=== PATIENT | male | born 1985 | race Caucasian/White ===

== ENCOUNTER 2017-04-16 10:31 | Inpatient (IN) | payer OTHER ==
[2017-04-16 13:13] VITALS: BMI 28.5
--- NOTE | 2017-04-16 13:51 | HP ---
CIWA Score - CIWA Score Nausea/Vomitin Muscle Tremors: 3 Anxiety: 3 Agitation: 3 Paroxysmal Sweats: 2 Orientation: 0-Oriented Tacttile Disturbances: 2-Mild Itch/Numbness/Burn Auditory Disturbances: 2-Mild Harshness/Frighten Visual Disturbances: 2-Mild Sensitivity Headache: 2-Mild CIWA-Ar Total Score: 22 Admission ROS BHS - HPI Chief Complaint: i need help to stop drinking alcohol and xanax Allergies/Adverse Reactions: Allergies Allergy/AdvReac Type Severity Reaction Status Date / Time No Known Allergies Allergy Verified 04/16/17 13:40 History of Present Illness: this 31 years old male with alcohol and xanax,seeking detox,last detox 10/23 [facility] mmtp 100 mgs/day,last medicated 04/15/17 nicotine dependence anxiety and depression longest period of sobriety 3 years Exam Limitations: No Limitations - Ebola screening Have you traveled outside of the country in the last 21 days: No Have you had contact with anyone from an Ebola affected area: No Have you been sick,other than usual withdrawal symptoms: No Do you have a fever: No - Review of Systems Constitutional: Chills, Diaphoresis, Loss of Appetite, Malaise, Night Sweats, Changes in sleep, Unintentional Wgt. Loss EENT: reports: Nose Congestion Respiratory: reports: No Symptoms reported Cardiac: reports: Palpitations GI: reports: Diarrhea, Nausea, Vomiting, Abdominal cramping Musculoskeletal: reports: Back Pain, Muscle Pain Integumentary: reports: Dryness Neuro: reports: Headache, Tremors Endocrine: reports: No Symptoms Reported Hematology: reports: No Symptoms Reported Psychiatric: reports: No Sypmtoms Reported, Judgement Intact, Mood/Affect Appropiate, Anxious, Depressed Other Systems: Reviewed and Negative Patient History - Patient Medical History Hx Anemia: No Hx Asthma: No Hx Chronic Obstructive Pulmonary Disease (COPD): No Hx Cancer: No Hx Cardiac Disorders: No Hx Congestive Heart Failure: No Hx Hypertension: No Hx Hypercholesterolemia: No Hx Pacemaker: No HX Cerebrovascular Accident: No Hx Seizures: No Hx Dementia: No Hx Diabetes: No Hx Gastrointestinal Disorders: No Hx Liver Disease: No Hx Genitourinary Disorders: No Hx Sexually Transmitted Disorders: No Hx Renal Disease (ESRD): No Hx Thyroid Disease: No Hx Human Immunodeficiency Virus (HIV): No (last 10/23 negative) Hx Hepatitis C: No Hx Depression: Yes (anxiety) Hx Suicide Attempt: No Hx Bipolar Disorder: No Hx Schizophrenia: No Other Medical History: no suicidal,no homicidal - Patient Surgical History Past Surgical History: No - PPD History Previous Implant?: Yes Documented Results: Negative w/o proof Implanted On Prior [facility] Admission?: No PPD to be Administered?: Yes - Smoking Cessation Smoking history: Current every day smoker Have you smoked in the past 12 months: Yes Aproximately how many cigarettes per day: 5 Hx Chewing Tobacco Use: No Initiated information on smoking cessation: Yes 'Breaking Loose' booklet given: 04/16/17 - Substance & Tx. History Hx Alcohol Use: Yes Hx Substance Use: Yes Substance Use Type: Alcohol, Tranquilizers Hx Substance Use Treatment: Yes ([facility] 10/23) - Substances Abused Alcohol-vodka/four lokos Route: Oral Frequency: Daily Amount used: 1 qt./2 (24 oz.) Age of first use: 13 Date of Last Use: 04/16/17 Xanax Route: Oral Frequency: Daily Amount used: 12 mg. Age of first use: 28 Date of Last Use: 04/14/17 Family Disease History - Family Disease History Family History: Denies Admission Physical Exam [facility] - Vital Signs Vital Signs: Vital Signs - 24 hr 04/16/17 13:09 Temperature 96.5 F L Pulse Rate 97 H Respiratory 18 Rate Blood Pressure 128/87 - Physical General Appearance: Yes: Moderate Distress, Tremorous, Irritable, Sweating, Anxious HEENTM: Yes: Hearing grossly Normal, Normal ENT Inspection, Nasal Congestion, Rhinorrhea Respiratory: Yes: Lungs Clear, Normal Breath Sounds, No Respiratory Distress Neck: Yes: Within Normal Limits Breast: Yes: Within Normal Limits Cardiology: Yes: Within Normal Limits, Regular Rhythm, Regular Rate, S1, S2 Abdominal: Yes: Within Normal Limits, Normal Bowel Sounds, Non Tender, Flat, Soft Genitourinary: Yes: Within Normal Limits Back: Yes: Muscle Spasm Musculoskeletal: Yes: Within Normal Limits, full range of Motion, Back pain, Muscle Pain Extremities: Yes: Within Normal Limits, Normal Range of Motion, Tremors 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 intact, Fully Oriented, Alert, Motor Strength 5/5 Integumentary: Yes: Dry Lymphatic: Yes: Within Normal Limits - Diagnostic (1) Alcohol dependence with uncomplicated withdrawal Current Visit: Yes Status: Acute (2) Cocaine dependence Current Visit: Yes Status: Acute (3) Methadone maintenance therapy patient Current Visit: Yes Status: Acute (4) Weight loss Current Visit: Yes Status: Acute (5) Nicotine dependence Current Visit: Yes Status: Acute (6) Anxiety and depression Current Visit: Yes Status: Acute Cleared for Admission [facility] - Detox or Rehab [facility] Level of Care: Medically Managed Detox Regimen/Protocol: Valium [facility] Breath Alcohol Content Breath Alcohol Content: 0.111 Urine Drug Screen - Results Drug Screen Negative: No Urine Drug Screen Results: GLORIA-Cocaine, BZO-Benzodiazepines, MTD-Methadone, TCA- Tricyclic Antidepress
[2017-04-16] MEDS ORDERED: LOPERAMIDE HCL 2 MG CAPSULE PO PRN (14:00)
[2017-04-16] MEDS ORDERED: MAG HYDROX/AL HYDROX/SIMETH 30 ML UNIT-DOSE CUP PO PRN (14:00)
[2017-04-16] MEDS ORDERED: guaiFENesin/D-METHORPHAN HB 10 ML UNIT-DOSE CUPS PO PRN (14:00)
[2017-04-16] MEDS ORDERED: MAGNESIUM CITRATE 300 ML BOTTLE PO PRN (14:00)
[2017-04-16] MEDS ORDERED: IBUPROFEN 400 MG TABLET (FP) PO PRN (14:00)
[2017-04-16] MEDS ORDERED: diphenhydrAMINE HCL 50 MG CAPSULE PO PRN (14:00)
[2017-04-16] MEDS ORDERED: MAGNESIUM HYDROX 2400MG/30ML ORAL SUSPENSION 30 ML CUP PO PRN (14:00)
[2017-04-16] MEDS ORDERED: MENTHOL/PHENOL 1 EACH UD MM PRN (14:00)
[2017-04-16] MEDS ORDERED: ACETAMINOPHEN 325 MG TABLET (FP) PO PRN (14:00)
[2017-04-16] MEDS ORDERED: P-EPHED 60MG/TRIPROLIDI 2.5MG TABLET PO PRN (14:00)
[2017-04-16] MEDS ORDERED: hydrOXYzine PAMOATE 50 MG CAPSULE (FP) PO PRN (14:00)
[2017-04-16] MEDS ORDERED: METHADONE HCL 10 MG TABLET PO ONE (14:04)
[2017-04-16] MEDS ORDERED: diazePAM 5 MG TABLET PO ONE (14:45)
[2017-04-16] MEDS ORDERED: METHADONE 80 MG, METHADONE 20 MG PO ONE (14:45)
[2017-04-16] MEDS ORDERED: METHADONE HCL 10 MG TABLET ONE (15:37)
[2017-04-16] MEDS ORDERED: METHADONE HCL 40 MG DISPERSABLE TABLET ONE (15:38)
[2017-04-16] MEDS: NICOTINE 14 MG/24 HOURS TOPICAL PATCH TD SCH (15:50)
--- NOTE | 2017-04-16 16:27 | CONSULT ---
[facility] Psychiatric Consult - Data Date of interview: 04/16/17 Admission source: [facility] Identifying data: First admission to [facility] for this 31 y/o male seeking detox treatment for alcohol,opioid,cocaine and benzodiazepine dependence.Patient is single without children,homeless,unemployed and supported on food stamps. Substance Abuse History: - Smoking Cessation. Smoking history: Current every day smoker. Have you smoked in the past 12 months: Yes. Aproximately how many cigarettes per day: 5. Hx Chewing Tobacco Use: No. Initiated information on smoking cessation: Yes. 'Breaking Loose' booklet given: 04/16/17. - Substance & Tx. History. Hx Alcohol Use: Yes. Hx Substance Use: Yes. Substance Use Type : Alcohol, Tranquilizers. Hx Substance Use Treatment: Yes ([facility] 10/23) . - Substances Abused. Alcohol-vodka/four lokos. Route: Oral. Frequency: Daily. Amount used: 1 qt./2 (24 oz.). Age of first use: 13. Date of Last Use : 04/16/17. Xanax. Route: Oral. Frequency: Daily. Amount used: 12 mg. Age of first use: 28. Date of Last Use: 04/14/17. Confirmed by patient. Medical History: Patient endorses good general health. Psychiatric History: No reported history of psychiatric hospitalizations.Diagnosed with Anxiety Disorder and Insomnia.Used to be on buspar,xanax,vistaril,remeron and trazodone.Patient is currrently on methadone maintenance (100 mg/day) at the [facility] in the [place].Discharged from [facility] over a month ago.Patient denies history of suicide attempts. Physical/Sexual Abuse/Trauma History: Patient denies. Additional Comment: Urine Drug Screen Results: GLORIA-Cocaine, BZO-Benzodiazepines , MTD-Methadone, TCA-Tricyclic Antidepressant.Noted. Mental Status Exam - Mental Status Exam Alert and Oriented to: Time, Place, Person Cognitive Function: Good Patient Appearance: Well Groomed Mood: Anxious, Apprehensive Affect: Mood Congruent Patient Behavior: Fatigued, Appropriate, Cooperative Speech Pattern: Clear Voice Loudness: Normal Thought Process: Goal Oriented Thought Disorder: Not Present Hallucinations: Denies Suicidal Ideation: Denies Homicidal Ideation: Denies Insight/Judgement: Poor Sleep: Poorly, Difficulty falling asleep (wants trazodone) Appetite: Good Muscle strength/Tone: Normal Gait/Station: Normal Psychiatric Findings - Problem List (Bern 1, 2,3) (1) Alcohol dependence with uncomplicated withdrawal Current Visit: Yes Status: Acute (2) Cocaine dependence Current Visit: Yes Status: Acute (3) Nicotine dependence Current Visit: Yes Status: Acute (4) Opioid dependence on agonist therapy Current Visit: Yes Status: Acute (5) Substance induced mood disorder Current Visit: Yes Status: Acute (6) Insomnia Current Visit: Yes Status: Acute - Initial Treatment Plan Initial Treatment Plan: Psychoeducation.Detoxification.Trazodone 100 mg po hs.Patient is made aware of potential for priapism.He reports that he has always " done well " on this medication without adverse effects.Observation.
[2017-04-16 17:33] LABS: URINE APPEARANCE CLEAR; URINE BILIRUBIN NEGATIVE (NEGATIVE); URINE BLOOD NEGATIVE (NEGATIVE); URINE COLOR COLORLESS; URINE GLUCOSE (UA) NEGATIVE (NEGATIVE); URINE KETONE NEGATIVE (NEGATIVE); URINE LEUK ESTERASE NEGATIVE (NEGATIVE); URINE NITRITE NEGATIVE (NEGATIVE); URINE PROTEIN NEGATIVE (NEGATIVE); URINE UROBILINOGEN NEGATIVE E.U./dl (0.2-1.0)
[2017-04-16] MEDS: diazePAM 5 MG TABLET PO PRN (18:47)
[2017-04-16] MEDS: cloNIDine HCL 0.1 MG TABLET PO SCH (22:11)
[2017-04-16] MEDS: traZODone HCL 100 MG TABLET (FP) PO SCH (22:11)
[2017-04-16] MEDS: diazePAM 5 MG TABLET PO SCH (22:11)
[2017-04-16] MEDS: THIAMINE HCL 100 MG TABLET (FP) PO SCH (22:11)
[2017-04-17] MEDS ORDERED: METHADONE HCL 10 MG TABLET ONE (04:24)
[2017-04-17] MEDS ORDERED: METHADONE HCL 40 MG DISPERSABLE TABLET ONE (04:25)
[2017-04-17] MEDS: METHADONE 80 MG, METHADONE 20 MG PO SCH (05:49)
[2017-04-17] MEDS: diazePAM 5 MG TABLET PO SCH ×3 (05:49→22:07)
[2017-04-17] MEDS ORDERED: METHADONE HCL 10 MG TABLET PO SCH (06:00)
[2017-04-17] MEDS: diazePAM 5 MG TABLET PO PRN ×2 (08:56→17:13)
[2017-04-17 09:58] LABS: MCH 29.5 pg (25.7-33.7); MCHC 33.8 g/dl (32.0-35.9); MEAN CELL VOLUME 87.2 fl (80-96); MEAN PLT VOLUME 9.7 fl (7.5-11.1); PLATELET COUNT 182 K/MM3 (134-434); WHITE BLOOD COUNT 7.9 K/mm3 (4.0-10.0)
[2017-04-17] MEDS: cloNIDine HCL 0.1 MG TABLET PO SCH ×2 (10:04→22:07)
[2017-04-17] MEDS: PRENATAL VITAMINS W/ FOLIC ACID TABLET (FP) PO SCH (10:04)
[2017-04-17] MEDS: NICOTINE 14 MG/24 HOURS TOPICAL PATCH TD SCH (10:04)
[2017-04-17 10:37] LABS: ALBUMIN 4.2 g/dl (3.4-5.0); ALK PHOS 118 U/L (45-117); ANION GAP 11 (8-16); BILIRUBIN,TOTAL 0.3 mg/dL (0.2-1.0); CALCIUM 8.9 mg/dL (8.5-10.1); CO2 31 mmol/L (21-32); COCKROFT - GAULT 138.86; CREATININE 0.9 mg/dL (0.7-1.3); GLUCOSE,RANDOM 92 mg/dL (74-106); SGOT/AST 27 U/L (15-37); SGPT/ALT 27 U/L (12-78); TOT PROT 7.7 g/dl (6.4-8.2)
[2017-04-17 14:14] LABS: HIV 1 & 2 AB NEGATIVE; HIV 1 AGp24 NEGATIVE
--- NOTE | 2017-04-17 15:47 | EKG ---
Test Reason : Blood Pressure : / mmHG Vent. Rate : 086 BPM Atrial Rate : 086 BPM P-R Int : 156 ms QRS Dur : 094 ms QT Int : 394 ms P-R-T Axes : 070 033 029 degrees QTc Int : 471 ms NORMAL SINUS RHYTHM NORMAL ECG NO PREVIOUS ECGS AVAILABLE Confirmed by MAGDALENE VILLEDA, RED ([id number]) on 04/17/2017 3:47:29 PM Referred By: Confirmed By:RED DEL CASTILLO MD
--- NOTE | 2017-04-17 18:51 | PN ---
S CIWA - CIWA Score Nausea/Vomitin Muscle Tremors: 3 Anxiety: 4-Mod. Anxious/Guarded Agitation: 2 Paroxysmal Sweats: 3 Orientation: 0-Oriented Tacttile Disturbances: 2-Mild Itch/Numbness/Burn Auditory Disturbances: 0-None Visual Disturbances: 2-Mild Sensitivity Headache: 0-None Present CIWA-Ar Total Score: 18 BHS Progress Note (SOAP) Subjective: Stomach Cramping, Anxious, Interrupted Sleep, Body Aches, Sweating. Objective: PT. A & O X 3. NO ACUTE DISTRESS. 04/17/17 18:49 Vital Signs Temperature 97.3 F L 04/17/17 17:35 Pulse Rate 76 04/17/17 17:35 Respiratory Rate 18 04/17/17 17:35 Blood Pressure 114/70 04/17/17 17:35 O2 Sat by Pulse Oximetry (%) Laboratory Tests 04/16/17 04/17/17 04/17/17 15:00 06:00 06:00 WBC 7.9 RBC 4.59 Hgb 13.5 Hct 40.0 MCV 87.2 MCHC 33.8 RDW 13.0 Plt Count 182 MPV 9.7 Sodium 140 Potassium 3.8 Chloride 98 Carbon Dioxide 31 Anion Gap 11 BUN 8 Creatinine 0.9 Creat Clearance w eGFR > 60 Random Glucose 92 Calcium 8.9 Total Bilirubin 0.3 AST 27 ALT 27 Alkaline Phosphatase 118 H Total Protein 7.7 Albumin 4.2 Urine Color Colorless Urine Appearance Clear Urine pH 6.0 Ur Specific [place] 1.010 Urine Protein Negative Urine Glucose (UA) Negative Urine Ketones Negative Urine Blood Negative Urine Nitrite Negative Urine Bilirubin Negative Urine Urobilinogen Negative Ur Leukocyte Esterase Negative RPR Titer HIV 1&2 Antibody Screen HIV P24 Antigen 04/17/17 04/17/17 06:00 08:00 WBC RBC Hgb Hct MCV MCHC RDW Plt Count MPV Sodium Potassium Chloride Carbon Dioxide Anion Gap BUN Creatinine Creat Clearance w eGFR Random Glucose Calcium Total Bilirubin AST ALT Alkaline Phosphatase Total Protein Albumin Urine Color Urine Appearance Urine pH Ur Specific [place] Urine Protein Urine Glucose (UA) Urine Ketones Urine Blood Urine Nitrite Urine Bilirubin Urine Urobilinogen Ur Leukocyte Esterase RPR Titer Nonreactive HIV 1&2 Antibody Screen Negative HIV P24 Antigen Negative LABS NOTED. Assessment: 04/17/17 18:50 WITHDRAWAL SYMPTOMS. Plan: CONTINUE DETOX.
[2017-04-17] MEDS: THIAMINE HCL 100 MG TABLET (FP) PO SCH (22:06)
[2017-04-17] MEDS: CYCLOBENZAPRINE HCL 10 MG TABLET (FP) PO PRN (22:07)
[2017-04-17] MEDS: traZODone HCL 100 MG TABLET (FP) PO SCH (22:07)
[2017-04-18] MEDS ORDERED: METHADONE HCL 10 MG TABLET ONE (02:59)
[2017-04-18] MEDS ORDERED: METHADONE HCL 40 MG DISPERSABLE TABLET ONE (03:00)
[2017-04-18] MEDS: CYCLOBENZAPRINE HCL 10 MG TABLET (FP) PO PRN ×2 (05:35→22:04)
[2017-04-18] MEDS: diazePAM 5 MG TABLET PO PRN ×3 (05:36→17:03)
[2017-04-18] MEDS: METHADONE 80 MG, METHADONE 20 MG PO SCH (05:36)
[2017-04-18] MEDS: cloNIDine HCL 0.1 MG TABLET PO SCH ×2 (10:04→22:04)
[2017-04-18] MEDS: diazePAM 5 MG TABLET PO SCH ×2 (10:04→22:03)
[2017-04-18] MEDS: NICOTINE 14 MG/24 HOURS TOPICAL PATCH TD SCH (10:04)
[2017-04-18] MEDS: PRENATAL VITAMINS W/ FOLIC ACID TABLET (FP) PO SCH (10:04)
--- NOTE | 2017-04-18 14:57 | PN ---
[facility] CIWA - CIWA Score Nausea/Vomitin-Int. Nausea w/Dry Heave Muscle Tremors: 4-Moderate,w/Arms Extend Anxiety: 4-Mod. Anxious/Guarded Agitation: 4-Moderately Restless Paroxysmal Sweats: 3 Orientation: 0-Oriented Tacttile Disturbances: 1-Very Mild Itch/Numbness Auditory Disturbances: 0-None Visual Disturbances: 0-None Headache: 0-None Present CIWA-Ar Total Score: 20 BHS Progress Note (SOAP) Subjective: Anxious, nausea, diarrhea, chills, tremor, interrupted sleep Objective: 04/18/17 14:56 Last Vital Signs Temp Pulse Resp BP Pulse Ox 97.5 F L 74 20 111/70 04/18/17 13:11 04/18/17 13:11 04/18/17 13:11 04/18/17 13:11 Laboratory Tests 04/16/17 04/17/17 04/17/17 15:00 06:00 06:00 WBC 7.9 RBC 4.59 Hgb 13.5 Hct 40.0 MCV 87.2 MCHC 33.8 RDW 13.0 Plt Count 182 MPV 9.7 Sodium 140 Potassium 3.8 Chloride 98 Carbon Dioxide 31 Anion Gap 11 BUN 8 Creatinine 0.9 Creat Clearance w eGFR > 60 Random Glucose 92 Calcium 8.9 Total Bilirubin 0.3 AST 27 ALT 27 Alkaline Phosphatase 118 H Total Protein 7.7 Albumin 4.2 Urine Color Colorless Urine Appearance Clear Urine pH 6.0 Ur Specific [place] 1.010 Urine Protein Negative Urine Glucose (UA) Negative Urine Ketones Negative Urine Blood Negative Urine Nitrite Negative Urine Bilirubin Negative Urine Urobilinogen Negative Ur Leukocyte Esterase Negative RPR Titer HIV 1&2 Antibody Screen HIV P24 Antigen 04/17/17 04/17/17 06:00 08:00 WBC RBC Hgb Hct MCV MCHC RDW Plt Count MPV Sodium Potassium Chloride Carbon Dioxide Anion Gap BUN Creatinine Creat Clearance w eGFR Random Glucose Calcium Total Bilirubin AST ALT Alkaline Phosphatase Total Protein Albumin Urine Color Urine Appearance Urine pH Ur Specific [place] Urine Protein Urine Glucose (UA) Urine Ketones Urine Blood Urine Nitrite Urine Bilirubin Urine Urobilinogen Ur Leukocyte Esterase RPR Titer Nonreactive HIV 1&2 Antibody Screen Negative HIV P24 Antigen Negative Labs noted Assessment: 04/18/17 14:56 Withdrawal symptoms Plan: Continue detox
[2017-04-18] MEDS: traZODone HCL 100 MG TABLET (FP) PO SCH (22:04)
[2017-04-18] MEDS: THIAMINE HCL 100 MG TABLET (FP) PO SCH (22:04)
[2017-04-19] MEDS ORDERED: METHADONE HCL 10 MG TABLET ONE (02:30)
[2017-04-19] MEDS ORDERED: METHADONE HCL 40 MG DISPERSABLE TABLET ONE (02:31)
[2017-04-19] MEDS: METHADONE 80 MG, METHADONE 20 MG PO SCH (05:30)
[2017-04-19] MEDS: diazePAM 5 MG TABLET PO PRN ×2 (05:34→13:55)
[2017-04-19] MEDS ORDERED: ONDANSETRON *ODT* 4 MG TABLET SL PRN (09:42)
[2017-04-19] MEDS: NICOTINE 14 MG/24 HOURS TOPICAL PATCH TD SCH (10:05)
[2017-04-19] MEDS: diazePAM 5 MG TABLET PO SCH ×2 (10:05→22:12)
[2017-04-19] MEDS: PRENATAL VITAMINS W/ FOLIC ACID TABLET (FP) PO SCH (10:05)
[2017-04-19] MEDS: cloNIDine HCL 0.1 MG TABLET PO SCH ×2 (10:05→22:12)
[2017-04-19] MEDS: CYCLOBENZAPRINE HCL 10 MG TABLET (FP) PO PRN (10:05)
--- NOTE | 2017-04-19 13:30 | PN ---
BHS Progress Note (SOAP) Subjective: Sweating,interrupted sleep,restless. Objective: 04/19/17 13:29 Vital Signs - 8 hr 04/19/17 04/19/17 06:18 09:31 Temperature 97.1 F L 97.0 F L Pulse Rate 73 80 Respiratory 16 18 Rate Blood Pressure 108/70 121/77 Laboratory Last Values WBC 7.9 K/mm3 (4.0-10.0) 04/17/17 06:00 RBC 4.59 M/mm3 (4.00-5.60) 04/17/17 06:00 Hgb 13.5 GM/dL (11.7-16.9) 04/17/17 06:00 Hct 40.0 % (35.4-49) 04/17/17 06:00 MCV 87.2 fl (80-96) 04/17/17 06:00 MCHC 33.8 g/dl (32.0-35.9) 04/17/17 06:00 RDW 13.0 % (11.9-15.9) 04/17/17 06:00 Plt Count 182 K/MM3 (134-434) 04/17/17 06:00 MPV 9.7 fl (7.5-11.1) 04/17/17 06:00 Sodium 140 mmol/L (136-145) 04/17/17 06:00 Potassium 3.8 mmol/L (3.5-5.1) 04/17/17 06:00 Chloride 98 mmol/L (98-107) 04/17/17 06:00 Carbon Dioxide 31 mmol/L (21-32) 04/17/17 06:00 Anion Gap 11 (8-16) 04/17/17 06:00 BUN 8 mg/dL (7-18) 04/17/17 06:00 Creatinine 0.9 mg/dL (0.7-1.3) 04/17/17 06:00 Creat Clearance w eGFR > 60 (>60) 04/17/17 06:00 Random Glucose 92 mg/dL (74-106) 04/17/17 06:00 Calcium 8.9 mg/dL (8.5-10.1) 04/17/17 06:00 Total Bilirubin 0.3 mg/dL (0.2-1.0) 04/17/17 06:00 AST 27 U/L (15-37) 04/17/17 06:00 ALT 27 U/L (12-78) 04/17/17 06:00 Alkaline Phosphatase 118 U/L (45-117) H 04/17/17 06:00 Total Protein 7.7 g/dl (6.4-8.2) 04/17/17 06:00 Albumin 4.2 g/dl (3.4-5.0) 04/17/17 06:00 Urine Color Colorless 04/16/17 15:00 Urine Appearance Clear 04/16/17 15:00 Urine pH 6.0 (5.0-8.0) 04/16/17 15:00 Ur Specific [place] 1.010 (1.005-1.025) 04/16/17 15:00 Urine Protein Negative (NEGATIVE) 04/16/17 15:00 Urine Glucose (UA) Negative (NEGATIVE) 04/16/17 15:00 Urine Ketones Negative (NEGATIVE) 04/16/17 15:00 Urine Blood Negative (NEGATIVE) 04/16/17 15:00 Urine Nitrite Negative (NEGATIVE) 04/16/17 15:00 Urine Bilirubin Negative (NEGATIVE) 04/16/17 15:00 Urine Urobilinogen Negative E.U./dl (0.2-1.0) 04/16/17 15:00 Ur Leukocyte Esterase Negative (NEGATIVE) 04/16/17 15:00 RPR Titer Nonreactive (NONREACTIVE) 04/17/17 06:00 HIV 1&2 Antibody Screen Negative 04/17/17 08:00 HIV P24 Antigen Negative 04/17/17 08:00 labs noted Assessment: 04/19/17 13:30 Withdrawal sx. Plan: Continue detox
[2017-04-19] MEDS: THIAMINE HCL 100 MG TABLET (FP) PO SCH (22:11)
[2017-04-19] MEDS: traZODone HCL 100 MG TABLET (FP) PO SCH (22:12)
[2017-04-20] MEDS ORDERED: METHADONE HCL 10 MG TABLET ONE (03:38)
[2017-04-20] MEDS ORDERED: METHADONE HCL 40 MG DISPERSABLE TABLET ONE (03:38)
[2017-04-20] MEDS: CYCLOBENZAPRINE HCL 10 MG TABLET (FP) PO PRN ×2 (05:27→22:07)
[2017-04-20] MEDS: METHADONE 80 MG, METHADONE 20 MG PO SCH (05:27)
[2017-04-20] MEDS ORDERED: diazePAM 5 MG TABLET PO SCH (10:00)
[2017-04-20] MEDS: NICOTINE 14 MG/24 HOURS TOPICAL PATCH TD SCH (10:11)
[2017-04-20] MEDS: cloNIDine HCL 0.1 MG TABLET PO SCH ×2 (10:11→22:06)
[2017-04-20] MEDS: PRENATAL VITAMINS W/ FOLIC ACID TABLET (FP) PO SCH (10:11)
--- NOTE | 2017-04-20 10:12 | PN ---
S Progress Note (SOAP) Subjective: ALERT O X 3. DETOX PROCEEDED WELL. AWAITS AFTERCARE REFERRAL. Objective: 04/20/17 10:11 Vital Signs Temperature 96.5 F L 04/20/17 09:25 Pulse Rate 79 04/20/17 09:25 Respiratory Rate 18 04/20/17 09:25 Blood Pressure 115/72 04/20/17 09:25 O2 Sat by Pulse Oximetry (%) Assessment: 04/20/17 10:11 DECREASED WITHDRAWAL SX Plan: D/C PT WHEN REHAB BED AVAILABLE.
[2017-04-20] MEDS: THIAMINE HCL 100 MG TABLET (FP) PO SCH (22:06)
[2017-04-20] MEDS: traZODone HCL 100 MG TABLET (FP) PO SCH (22:06)
[2017-04-21] MEDS ORDERED: METHADONE HCL 40 MG DISPERSABLE TABLET ONE (02:33)
[2017-04-21] MEDS ORDERED: METHADONE HCL 10 MG TABLET ONE (02:33)
[2017-04-21] MEDS: METHADONE 80 MG, METHADONE 20 MG PO SCH (05:30)
[2017-04-21] MEDS: CYCLOBENZAPRINE HCL 10 MG TABLET (FP) PO PRN (05:30)
[2017-04-21 06:35] VITALS: TEMP 97.3
--- NOTE | 2017-04-21 08:44 | DS ---
[facility] Detox Discharge Summary Admission Date: 04/16/17 Discharge Date: 04/21/17 - History Present History: Alcohol Dependence, Cannabis Dependence, Cocaine Dependence, Sedative Dependence, MMTP Additional Comments: DETOX COMPLETED.ALERT O X 3.NAD. Pertinent Past History: INSOMNIA MOOD DISORDER - Physical Exam Results Vital Signs: Vital Signs Temperature 97.3 F L 04/21/17 06:34 Pulse Rate 79 04/21/17 06:34 Respiratory Rate 18 04/21/17 06:34 Blood Pressure 103/65 04/21/17 06:34 O2 Sat by Pulse Oximetry (%) Pertinent Admission Physical Exam Findings: WITHDRAWAL SX - Treatment Hospital Course: Detox Protocol Followed, Detoxed Safely, Responded well, Discharged Condition Good, Rehab Referral Accepted Patient has Accepted a Rehab Referral to: [facility] - Medication Discharge Medications: Ambulatory Orders Buspirone HCl [Buspar -] 30 mg PO BID 04/16/17 Clonidine HCl [Catapres -] 0.1 mg PO BID 04/16/17 Mirtazapine [Remeron [DO NOT STOCK]] 45 mg PO HS 04/16/17 Trazodone HCl [Desyrel -] 150 mg PO HS 04/16/17 - Diagnosis (1) Alcohol dependence with uncomplicated withdrawal Status: Acute (2) Methadone maintenance therapy patient Status: Chronic (3) Nicotine dependence Status: Acute Qualifiers: Nicotine product type: cigarettes Substance use status: in withdrawal Qualified Code(s): F17.213 - Nicotine dependence, cigarettes, with withdrawal (4) Sedative, hypnotic or anxiolytic use, unspecified with intoxication, uncomplicated Status: Acute (5) Cocaine dependence, uncomplicated Status: Acute (6) Weight loss Status: Acute (7) Insomnia Status: Acute (8) Substance induced mood disorder Status: Acute - AMA Did Patient Leave Against Medical Advice: No
[2017-04-21 09:41] VITALS: BP 106/69; PULSE 62
== END 2017-04-21 09:41 | disposition home or self-care (01) | DRG 773 ==
LOC: YASAS 10:31 → Y3N 14:12
PROVIDERS: ADMIT Internal Medicine; ATTEND Internal Medicine
PROC: HZ2ZZZZ Detoxification Services for Substance Abuse Treatment (ICD-10-PCS; principal; 2017-04-16)
DX: F10.230 Alcohol dependence with withdrawal, uncomplicated (principal); F11.20 Opioid dependence, uncomplicated; F13.230 Sedative, hypnotic or anxiolytic dependence with withdrawal, uncomplicated; F14.20 Cocaine dependence, uncomplicated; F17.213 Nicotine dependence, cigarettes, with withdrawal; F19.24 Other psychoactive substance dependence with psychoactive substance-induced mood disorder; F41.9 Anxiety disorder, unspecified; G47.00 Insomnia, unspecified; Z87.898 Personal history of other specified conditions
CPT/HCPCS: 36415; 80053; 81003; 85027; 86593; 87389; 93005; 93010

== ENCOUNTER 2022-08-12 08:28 | Inpatient (IN) | payer OTHER ==
[2022-08-12 10:18] VITALS: BMI 25.8
[2022-08-12] MEDS ORDERED: ONDANSETRON *ODT* 4 MG TABLET SL PRN (11:45)
[2022-08-12] MEDS ORDERED: BENZOCAINE/MENTHOL (CHLORASEPTIC ) LOZENGE MM PRN (11:45)
[2022-08-12] MEDS ORDERED: MAGNESIUM HYDROX 2400MG/30ML ORAL SUSPENSION 30 ML CUP PO PRN (11:45)
[2022-08-12] MEDS ORDERED: MAGNESIUM CITRATE 300 ML BOTTLE PO PRN (11:45)
[2022-08-12] MEDS ORDERED: IBUPROFEN 400 MG TABLET (FP) PO PRN (11:45)
[2022-08-12] MEDS ORDERED: LOPERAMIDE HCL 2 MG CAPSULE PO PRN (11:45)
[2022-08-12] MEDS ORDERED: BISMUTH SUBSALICYLATE 262 MG/15 ML BTL PO PRN (11:45)
[2022-08-12] MEDS ORDERED: NALOXONE HCL (KLOXXADO) 8 MG SPRAY NS PRN (11:45)
[2022-08-12] MEDS ORDERED: DICYCLOMINE HCL 10 MG CAPSULE PO PRN (11:45)
[2022-08-12] MEDS ORDERED: ACETAMINOPHEN 325 MG TABLET (FP) PO PRN ×2 (11:45)
[2022-08-12] MEDS ORDERED: MAG HYDROX/AL HYDROX/SIMETH 30 ML UNIT-DOSE CUP PO PRN (11:45)
[2022-08-12] MEDS ORDERED: ONDANSETRON *ODT* 4 MG TABLET ONE (12:32)
[2022-08-12] MEDS ORDERED: diazePAM 5 MG TABLET ONE (12:32)
[2022-08-12] MEDS ORDERED: LOPERAMIDE HCL 2 MG CAPSULE ONE (12:33)
[2022-08-12] MEDS: diazePAM 5 MG TABLET PO SCH ×3 (12:40→22:12)
[2022-08-12] MEDS: PRENATAL VITAMINS W/ FOLIC ACID TABLET (FP) PO SCH (13:54)
[2022-08-12] MEDS: NICOTINE 14 MG/24 HOURS TOPICAL PATCH TD SCH (13:54)
[2022-08-12] MEDS: hydrOXYzine PAMOATE 25 MG CAPSULE (FP) PO SCH ×3 (13:54→22:11)
[2022-08-12] MEDS: METHOCARBAMOL 500 MG TABLET PO PRN (13:54)
[2022-08-12] MEDS: cloNIDine HCL 0.1 MG TABLET PO PRN ×2 (14:17→22:13)
[2022-08-12] MEDS: IBUPROFEN 600 MG TABLET (FP) PO PRN (17:07)
[2022-08-12] MEDS ORDERED: MELATONIN 5 MG TABLETS PO SCH (22:00)
[2022-08-12] MEDS: THIAMINE HCL 100 MG TABLET (FP) PO SCH (22:11)
[2022-08-13] MEDS: hydrOXYzine PAMOATE 25 MG CAPSULE (FP) PO SCH ×5 (05:35→22:09)
[2022-08-13] MEDS: diazePAM 5 MG TABLET PO SCH ×4 (05:35→22:09)
[2022-08-13 09:55] LABS: HEMATOCRIT 42.9 % (35.4-49); HEMOGLOBIN 14.7 GM/dL (11.7-16.9); MCH 33.5 pg (25.7-33.7); MCHC 34.3 g/dl (32.0-35.9); MEAN CELL VOLUME 97.8 fl (80-96); MEAN PLT VOLUME 9.9 fl (7.5-11.1); PLATELET COUNT 155 10^3/uL (134-434); RBC 4.39 M/mm3 (4.00-5.60); RDW 13.3 % (11.9-15.9); WHITE BLOOD COUNT 7.1 K/mm3 (4.0-10.0)
[2022-08-13 10:15] LABS: CALCIUM 9.5 mg/dL (8.5-10.1)
[2022-08-13 10:16] LABS: ALBUMIN 3.4 g/dl (3.4-5.0); BLOOD UREA NITROGEN 6.3 mg/dL (7-18)
[2022-08-13 10:22] LABS: TOT PROT 6.9 g/dl (6.4-8.2)
[2022-08-13 10:23] LABS: BILIRUBIN,TOTAL 2.4 mg/dL (0.2-1)
[2022-08-13] MEDS: NICOTINE 14 MG/24 HOURS TOPICAL PATCH TD SCH (10:24)
[2022-08-13] MEDS: METHOCARBAMOL 500 MG TABLET PO PRN (10:24)
[2022-08-13] MEDS: PRENATAL VITAMINS W/ FOLIC ACID TABLET (FP) PO SCH (10:24)
[2022-08-13] MEDS: diazePAM 5 MG TABLET PO PRN ×2 (12:50→19:15)
[2022-08-13] MEDS: GABAPENTIN 300 MG CAPSULE PO SCH ×2 (13:23→22:07)
[2022-08-13] MEDS: cloNIDine HCL 0.1 MG TABLET PO PRN (15:40)
[2022-08-13] MEDS: NICOTINE 10 MG CARTRIDGE (INHALER) IH PRN (17:06)
[2022-08-13] MEDS: QUEtiapine FUMARATE 100 MG TABLET (FP) PO SCH (22:07)
[2022-08-13] MEDS: THIAMINE HCL 100 MG TABLET (FP) PO SCH (22:07)
[2022-08-14] MEDS: hydrOXYzine PAMOATE 25 MG CAPSULE (FP) PO SCH ×2 (05:17→10:33)
[2022-08-14] MEDS: GABAPENTIN 300 MG CAPSULE PO SCH ×3 (05:17→22:15)
[2022-08-14] MEDS ORDERED: diazePAM 5 MG TABLET PO SCH (06:00)
[2022-08-14] MEDS: diazePAM 5 MG TABLET PO PRN (08:33)
[2022-08-14] MEDS: PRENATAL VITAMINS W/ FOLIC ACID TABLET (FP) PO SCH (10:33)
[2022-08-14] MEDS: NICOTINE 14 MG/24 HOURS TOPICAL PATCH TD SCH (10:34)
[2022-08-14] MEDS: METHOCARBAMOL 500 MG TABLET PO PRN (10:43)
[2022-08-14] MEDS ORDERED: chlordiazePOXIDE HCL 25 MG CAPSULE PO PRN (10:59)
[2022-08-14] MEDS: chlordiazePOXIDE HCL 25 MG CAPSULE PO SCH ×3 (11:40→22:15)
[2022-08-14] MEDS: NICOTINE 10 MG CARTRIDGE (INHALER) IH PRN (17:09)
[2022-08-14] MEDS: hydrOXYzine PAMOATE 25 MG CAPSULE (FP) PO PRN (17:09)
[2022-08-14] MEDS: THIAMINE HCL 100 MG TABLET (FP) PO SCH (22:15)
[2022-08-14] MEDS: QUEtiapine FUMARATE 100 MG TABLET (FP) PO SCH (22:15)
[2022-08-14 23:00] VITALS: RESP 18
[2022-08-15] MEDS ORDERED: diazePAM 5 MG TABLET PO SCH (06:00)
[2022-08-15] MEDS: GABAPENTIN 300 MG CAPSULE PO SCH ×3 (06:01→22:09)
[2022-08-15] MEDS: chlordiazePOXIDE HCL 25 MG CAPSULE PO SCH ×2 (06:01→10:33)
[2022-08-15] MEDS: METHOCARBAMOL 500 MG TABLET PO PRN (10:32)
[2022-08-15] MEDS: NICOTINE 10 MG CARTRIDGE (INHALER) IH PRN ×2 (10:32→17:17)
[2022-08-15] MEDS: PRENATAL VITAMINS W/ FOLIC ACID TABLET (FP) PO SCH (10:33)
[2022-08-15] MEDS: IBUPROFEN 600 MG TABLET (FP) PO PRN (10:33)
[2022-08-15] MEDS: NICOTINE 14 MG/24 HOURS TOPICAL PATCH TD SCH (10:33)
[2022-08-15] MEDS: hydrOXYzine PAMOATE 25 MG CAPSULE (FP) PO PRN (10:33)
[2022-08-15] MEDS: LORazepam 1 MG TABLET PO SCH ×2 (13:30→17:40)
[2022-08-15] MEDS: LORazepam 1 MG TABLET PO PRN ×2 (15:27→22:11)
[2022-08-15] MEDS: THIAMINE HCL 100 MG TABLET (FP) PO SCH (22:09)
[2022-08-15] MEDS: QUEtiapine FUMARATE 100 MG TABLET (FP) PO SCH (22:09)
[2022-08-16] MEDS ORDERED: LORazepam 0.5 MG TABLET PO SCH (05:00)
[2022-08-16] MEDS ORDERED: chlordiazePOXIDE HCL 25 MG CAPSULE PO SCH (05:00)
[2022-08-16] MEDS: hydrOXYzine PAMOATE 25 MG CAPSULE (FP) PO PRN (05:29)
[2022-08-16] MEDS: GABAPENTIN 300 MG CAPSULE PO SCH (05:29)
[2022-08-16] MEDS ORDERED: diazePAM 5 MG TABLET PO ONE (06:00)
[2022-08-16] MEDS: LORazepam 1 MG TABLET PO PRN (08:39)
[2022-08-16 09:51] VITALS: BP 143/92; PULSE 82; TEMP 97.3
[2022-08-17] MEDS ORDERED: chlordiazePOXIDE HCL 10 MG CAPSULE PO PRN
[2022-08-17] MEDS ORDERED: chlordiazePOXIDE HCL 10 MG CAPSULE PO SCH (05:00)
[2022-08-17] MEDS ORDERED: LORazepam 0.5 MG TABLET PO ONE (05:00)
[2022-08-18] MEDS ORDERED: LORazepam 0.5 MG TABLET PO PRN
[2022-08-18] MEDS ORDERED: chlordiazePOXIDE HCL 10 MG CAPSULE PO SCH (05:00)
[2022-08-19] MEDS ORDERED: chlordiazePOXIDE HCL 10 MG CAPSULE PO ONE (05:00)
== END 2022-08-16 09:13 | disposition home or self-care (01) | DRG 774 ==
LOC: YASAS 08:28 → Y6N 13:18 → UNDOADMIN 13:18 → Y6N 14:29
PROVIDERS: ADMIT Allergy & Immunology; ATTEND Surgery
PROC: HZ2ZZZZ Detoxification Services for Substance Abuse Treatment (ICD-10-PCS; principal; 2022-08-12)
DX: F10.230 Alcohol dependence with withdrawal, uncomplicated (principal); F14.20 Cocaine dependence, uncomplicated; F13.20 Sedative, hypnotic or anxiolytic dependence, uncomplicated; F12.20 Cannabis dependence, uncomplicated; F17.210 Nicotine dependence, cigarettes, uncomplicated; F19.280 Other psychoactive substance dependence with psychoactive substance-induced anxiety disorder; F19.282 Other psychoactive substance dependence with psychoactive substance-induced sleep disorder; F19.24 Other psychoactive substance dependence with psychoactive substance-induced mood disorder; F41.8 Other specified anxiety disorders; R74.8 Abnormal levels of other serum enzymes
CPT/HCPCS: 36415; 80053; 82150; 85027; 86780; C9803-CS; Q0162; U0003; U0005